=== PATIENT | male | born 1955 | race Caucasian/White ===

== ENCOUNTER 2018-03-05 19:50 | Emergency (ER) | payer MEDICARE ==
[~2018-03-05] VITALS: Ht 180.3 cm; Wt 79.5 kg
[~2018-03-05 19:50] MED LIST: ASPIRIN 81M81 MG/TA2 PO; ATIVAN 0.50.5 MG/TAB PO; CARDIZEM 30MG T30 MG PO; CARDIZEM CD 18180 MG PO; CEPHALEXIN500 M1 PO; CHANTIX 1MG1 MG PO; CIPRO 500MG TA500 MG PO; COUMADIN 1010 MG/TAB PO; COUMADIN 5MG5 MG/TAB PO; COUMADIN 77.5 MG/TAB PO; COUMADIN5 MG PO; DIGITEK0.25 MG PO; FLAGYL500 MG PO; HYDROXYZINE HCL25 MG PO; JANTOVEN7.5 MG PO; JOINT SUPPLEMENT; LANOXIN 0.25M0.25 MG PO; LASIX40 MG PO; LEVAQUIN 5500 MG/TAB PO; LOPRESSOR 225 MG/TAB PO; LOVENOX 8080 MG/0.8 SQ; NO HOME MEDICATIONS; NORCO 325 MG-7.1 TAB PO; OMEGA 31000 MG PO; OMEGA-31000 MG PO; PERCOCET 325 MG1 TA2 PO; POTASSIUM CH2 MEQ/ML PO; PREDNISONE20 MG PO; PRINIVIL2.5 MG PO; PROBIOTIC FORMU1 CAP PO; ST. JOSEPH81 M2 PO; VALIUM 5MG T5 MG/TAB PO; VITAMIN D31000 IU PO; ZESTRIL 5MG5 MG PO; [UNRECOGNIZED DRUG - OTHER] PO; [UNRECOGNIZED DRUG - REMARK]
[2018-03-05 19:51] VITALS: BP 138/65; TEMP 98.6
[2018-03-05] MEDS ORDERED: SURFAK 240240 MG/CAP PO (21:13)
[2018-03-05] MEDS ORDERED: CARDIZEM CD 18180 MG PO (21:14)
[2018-03-05] MEDS ORDERED: COUMADIN 5MG5 MG/TAB PO (21:16)
[2018-03-05] MEDS ORDERED: CLEOCIN HCL300 MG PO (22:31)
[2018-03-05 23:18] VITALS: PULSE 53
== END 2018-03-05 23:18 | disposition home or self-care (01) ==
LOC: COL.ER 19:50
DX: S02.82XA Fracture of other specified skull and facial bones, left side, initial encounter for closed fracture (principal); S01.81XA Laceration without foreign body of other part of head, initial encounter; I10 Essential (primary) hypertension; Z79.01 Long term (current) use of anticoagulants; Z95.2 Presence of prosthetic heart valve; Z79.82 Long term (current) use of aspirin; Y04.0XXA Assault by unarmed brawl or fight, initial encounter

== ENCOUNTER 2018-03-13 10:57 | Emergency (ER) | payer MEDICARE ==
[~2018-03-13 10:57] MED LIST changes: +CLEOCIN HCL300 MG PO; +SURFAK 240240 MG/CAP PO
[2018-03-13 11:03] VITALS: BP 125/89; PULSE 73; TEMP 98.6
== END 2018-03-13 11:09 | disposition home or self-care (01) ==
LOC: COL.ER 10:57
DX: S01.412D Laceration without foreign body of left cheek and temporomandibular area, subsequent encounter (principal); X58.XXXD Exposure to other specified factors, subsequent encounter; Z79.82 Long term (current) use of aspirin; Z79.01 Long term (current) use of anticoagulants

== ENCOUNTER 2019-04-27 08:34 | Outpatient (CLI) | payer MEDICARE ==
[~2019-04-27] VITALS: Ht 180.3 cm; Wt 74.6 kg
[2019-04-27] MEDS ORDERED: CARDIZEM CD 12120 MG PO (09:17)
[2019-04-27] MEDS ORDERED: COUMADIN 1MG1 MG/TAB PO (09:20)
[2019-04-27 09:24] LABS: HEMATOCRIT 44.9 % (42.0-52.0); HEMOGLOBIN 15.1 g/dl (13.5-18.0); INR 2.9 (0.8-3.0); MEAN CELL VOLUME 92 fl (80.0-100.0); MEAN CORPUSCULAR HEMOGLOBIN 31 pg (27.0-31.0); MEAN CORPUSCULAR HGB CONC 34 g/dl (33.0-37.0); MEAN PLATELET VOLUME 8.7 fl (7.4-10.4); PLATELET COUNT 178 K/mm3 (130-400); PROTHROMBIN TIME 34.9 SECONDS (9.7-12.8); RED BLOOD COUNT 4.88 M/mm3 (4.20-5.60); REDCELL DISTRIBUTION WIDTH-CV 13.4 % (11.5-14.5)
[2019-04-27 09:28] LABS: CALCIUM 8.9 mg/dL (8.4-10.2); CREATININE, serum 1.18 (0.66-1.25); POTASSIUM 4.6 mmol/L (3.4-5.0)
[2019-04-27 09:42] VITALS: BP 142/87; PULSE 63; TEMP 98.1
[2019-04-27 10:45] VITALS: BP 130/82; PULSE 58
--- NOTE | 2019-04-27 10:45 | NUR ---
DELISA complete and report from Ronnie Pinon RN. Pt resting well in bed. Mother at bedside.
[2019-04-27 11:00] VITALS: BP 139/83; PULSE 88
[2019-04-27 11:15] VITALS: BP 145/90; PULSE 71; TEMP 97.7
[2019-04-27 11:30] VITALS: BP 139/64; PULSE 57
--- NOTE | 2019-04-27 11:30 | NUR ---
Pt has ambulated, voided and jing PO intake s n/v. PIV removed with catheter intact.
--- NOTE | 2019-04-27 11:40 | NUR ---
Pt discharged per w/c by nurse with mother.
== END 2019-04-27 13:27 | disposition home or self-care (01) ==
LOC: COL.RAD 08:34
PROVIDERS: Internal Medicine Cardiovascular Disease
DX: T82.03XA Leakage of heart valve prosthesis, initial encounter (principal); I08.3 Combined rheumatic disorders of mitral, aortic and tricuspid valves; I70.0 Atherosclerosis of aorta; I48.0 Paroxysmal atrial fibrillation; E78.2 Mixed hyperlipidemia; Z95.4 Presence of other heart-valve replacement; Z87.891 Personal history of nicotine dependence; Z79.899 Other long term (current) drug therapy
CPT/HCPCS: J2704; J7030

== ENCOUNTER → 2019-08-28 | Outpatient (CLI) | payer MEDICARE ==
[~2019-08-28] MED LIST changes: +CARDIZEM CD 12120 MG PO; +COUMADIN 1MG1 MG/TAB PO
== END ==
LOC: COL.PUL 08:00
DX: R06.02 Shortness of breath (principal); F17.210 Nicotine dependence, cigarettes, uncomplicated

== ENCOUNTER 2019-11-03 11:06 | Day surgery (SDC) | payer MEDICARE ==
[~2019-11-03] VITALS: Ht 177.8 cm; Wt 75.0 kg
[2019-11-03] VITALS (10 sets, daily range): BP systolic 127–153; BP diastolic 83–106; PULSE 62–81; TEMP 96.7
[2019-11-03 11:40] LABS: BASO % 0.5 % (0.0-2.0); EOS # 0.1 (0.0-0.7); GRAN # 4.5 (1.4-6.5); GRAN % 74.2 % (42.2-75.2); HEMATOCRIT 45.3 % (42.0-52.0); LYMPH % 15.8 % (20.0-51.0); MEAN CELL VOLUME 93 fl (80.0-100.0); MEAN CORPUSCULAR HEMOGLOBIN 31 pg (27.0-31.0); MEAN CORPUSCULAR HGB CONC 33 g/dl (33.0-37.0); MEAN PLATELET VOLUME 9.1 fl (7.4-10.4); MONO # 0.4 (0.1-0.6); MONO % 7.3 % (1.7-9.3); PLATELET COUNT 220 K/mm3 (130-400); RED BLOOD COUNT 4.89 M/mm3 (4.20-5.60); REDCELL DISTRIBUTION WIDTH-CV 13.2 % (11.5-14.5)
[2019-11-03 11:51] LABS: ALANINE AMINOTRANSFERASE 30 U/L (21-72); ALBUMIN 4.5 gm/dL (3.5-5.0); ALKALINE PHOSPHATASE 105 U/L (50-136); ANION GAP 7 mmol/L (7-16); AST,SGOT 42 U/L (15-37); BILIRUBIN,TOTAL 0.9 mg/dL (0.0-1.0); BLOOD UREA NITROGEN 17 mg/dL (9-20); CALCIUM 9.1 mg/dL (8.4-10.2); CARBON DIOXIDE 27 mmol/L (22-30); CHLORIDE 105 mmol/L (98-107); CREATININE, serum 1.17 (0.66-1.25); GLUCOSE 95 mg/dL (74-106); POTASSIUM 4.3 mmol/L (3.4-5.0); SODIUM 140 mmol/L (137-145); TOTAL PROTEIN 7.4 gm/dL (6.4-8.2)
[2019-11-03 11:56] LABS: INR 3.1 (0.8-3.0); PROTHROMBIN TIME 38.1 SECONDS (9.7-12.8)
[2019-11-03 11:58] LABS: PARTIAL THROMBOPLASTIN TIME 59.4 SECONDS (26.0-37.0)
[2019-11-03 12:02] LABS: TROPONIN-I < 0.012 ng/mL (0.000-0.035)
--- NOTE | 2019-11-03 13:42 | NUR ---
SEE MERGE DOCUMENTATION FOR MEDICATION ADMINISTRATION TIMES AND INTRA/POST PROCEDURE SEDATION ASSESSMENTS. POSITIAGUILAR DAVID, PLAN FOR RIGHT RADIAL ACCESS.
--- NOTE | 2019-11-03 14:40 | NUR ---
Pt arrived to room 12 from flower shop laborer/designer,report from KADE Llanos.
--- NOTE | 2019-11-03 18:26 | NUR ---
Discharge instructions given to pt.Pt verbalizes understanding.Pt instructed to call Dr Corbett office Wednesday am for 1 week follow up.Pt instructed to call Dr Jennings office for follow up.INT removed,catheter tip intact.Pt escorted out via wheelchair by this nurse.
== END 2019-11-03 18:31 | disposition home or self-care (01) ==
LOC: COL.ER 11:06 → EUO 14:27
PROVIDERS: Family Medicine
DX: I77.810 Thoracic aortic ectasia (principal); I08.3 Combined rheumatic disorders of mitral, aortic and tricuspid valves; I25.10 Atherosclerotic heart disease of native coronary artery without angina pectoris; I48.0 Paroxysmal atrial fibrillation; Z79.01 Long term (current) use of anticoagulants; Z95.2 Presence of prosthetic heart valve; I10 Essential (primary) hypertension; Z79.899 Other long term (current) drug therapy; Z79.82 Long term (current) use of aspirin; R01.1 Cardiac murmur, unspecified; Z88.1 Allergy status to other antibiotic agents; Z88.0 Allergy status to penicillin; Z88.7 Allergy status to serum and vaccine
CPT/HCPCS: C1769; J1644; J2250; J3010; Q9967

== ENCOUNTER 2020-07-16 13:59 | Inpatient (IN) | payer MEDICARE ==
[2020-07-16] VITALS (112 sets, daily range): BP systolic 100–107; BP diastolic 70–93; PULSE 65–156; TEMP 98.2; O2SAT 64–100
[~2020-07-16] VITALS: Ht 177.8 cm; Wt 73.5 kg
[2020-07-16 14:35] LABS: BASO % 0.3 % (0.0-2.0); EOS % 0.2 % (0-4.0); GRAN # 7.7 (1.4-6.5); GRAN % 80.9 % (42.2-75.2); HEMOGLOBIN 15.6 g/dl (13.5-18.0); LYMPH # 1.3 (1.2-3.4); LYMPH % 13.5 % (20.0-51.0); MEAN CELL VOLUME 93 fl (80.0-100.0); MEAN CORPUSCULAR HEMOGLOBIN 31 pg (27.0-31.0); MEAN CORPUSCULAR HGB CONC 33 g/dl (33.0-37.0); MEAN PLATELET VOLUME 8.7 fl (7.4-10.4); MONO # 0.5 (0.1-0.6); MONO % 4.8 % (1.7-9.3); PLATELET COUNT 278 K/mm3 (130-400); RED BLOOD COUNT 5.04 M/mm3 (4.20-5.60); REDCELL DISTRIBUTION WIDTH-CV 13.4 % (11.5-14.5)
[2020-07-16 14:40] LABS: INR 3.1 (0.8-3.0); PROTHROMBIN TIME 35.3 SECONDS (9.7-12.8)
[2020-07-16 14:43] LABS: PARTIAL THROMBOPLASTIN TIME 47.5 SECONDS (26.0-37.0)
[2020-07-16 14:46] LABS: ALBUMIN 4.8 gm/dL (3.5-5.0); CALCIUM 9.9 mg/dL (8.4-10.2); CREATININE, serum 2.04 (0.66-1.25); MAGNESIUM 2.2 mg/dL (1.6-2.3); POTASSIUM 4.3 mmol/L (3.4-5.0); TOTAL PROTEIN 7.9 gm/dL (6.4-8.2)
[2020-07-16 14:57] LABS: TROPONIN-I 0.012 ng/mL (0.000-0.035)
[2020-07-16] MEDS ORDERED: COUMADIN 77.5 MG/TAB PO ×2 (17:05→17:50)
[2020-07-17] VITALS (545 sets, daily range): BP systolic 116–140; BP diastolic 68–96; PULSE 56–65; TEMP 97.9–98.4; O2SAT 86–100
[2020-07-17 05:23] LABS: BASO % 0.7 % (0.0-2.0); EOS # 0.1 (0.0-0.7); EOS % 2.2 % (0-4.0); GRAN # 3.8 (1.4-6.5); GRAN % 65.4 % (42.2-75.2); HEMOGLOBIN 13.1 g/dl (13.5-18.0); LYMPH # 1.4 (1.2-3.4); LYMPH % 23.8 % (20.0-51.0); MEAN CELL VOLUME 94 fl (80.0-100.0); MEAN CORPUSCULAR HEMOGLOBIN 31 pg (27.0-31.0); MEAN CORPUSCULAR HGB CONC 33 g/dl (33.0-37.0); MEAN PLATELET VOLUME 8.8 fl (7.4-10.4); MONO # 0.4 (0.1-0.6); MONO % 7.4 % (1.7-9.3); PLATELET COUNT 190 K/mm3 (130-400); RED BLOOD COUNT 4.24 M/mm3 (4.20-5.60); REDCELL DISTRIBUTION WIDTH-CV 13.7 % (11.5-14.5)
[2020-07-17 05:28] LABS: INR 3.2 (0.8-3.0); PROTHROMBIN TIME 35.9 SECONDS (9.7-12.8)
[2020-07-17 05:38] LABS: ALBUMIN 3.3 gm/dL (3.5-5.0); BILIRUBIN,TOTAL 0.8 mg/dL (0.0-1.0); CALCIUM 8.3 mg/dL (8.4-10.2); CREATININE, serum 1.24 (0.66-1.25); POTASSIUM 3.9 mmol/L (3.4-5.0); TOTAL PROTEIN 5.6 gm/dL (6.4-8.2)
[2020-07-17 05:49] LABS: TROPONIN-I 0.022 ng/mL (0.000-0.035)
--- NOTE | 2020-07-17 10:28 | NUR ---
Database Administration Manager met with the patient to complete initial intake. The patient lives independently and alone (with his cat Spochristopher) in [place]. The patient is being taken care of by his father's friend. The patient has a CPAP but has not used it in over a year. He receives supplies from [facility]. The patient's PCP is Dr. Gail Corbett. The patient's yarn washer is Dr. Jennings and Fahad Watts APRN. The patient receives medications from [facility] with no difficulties. The patient does not have advanced directives. The patient is not but has two children, Zev # and Rebekah # . They live in [place], [place] and [place], [place], respectively. The patient plans to return home at discharge and has no anticipated needs.
--- NOTE | 2020-07-17 10:42 | NUR ---
Supervisor Of Officials attended clinical rounds with the team. The patient is to be transferred to the floor.
--- NOTE | 2020-07-17 11:30 | NUR ---
Patient has been doing well this morning. Denies chest pain and nausea. He will be going to med/surg floor when there is a bed available. Sotalol started as ordered by Dr Jennings. Patient is aware he will be staying in the hospital for a few days for observation. Cardizem drip has been discontinued. No other changes at this time. Call light within reach.
--- NOTE | 2020-07-17 14:14 | NUR ---
Warfarin Initial Dosing Pharmacy Note Ordering Provider: Ayaz Saini MD Indication: Mechanical Valve LABS: INR 3.2 (Goal 2.5-3.5) Recommendation: Continue Warfarin 7.5 mg po qHS. Pharmacy will continue to closely montior daily INR levels. Home Regimen: Warfarin 10 mg po SuTuTh and Warfarin 7.5 mg po [id number]
[2020-07-18] VITALS (240 sets, daily range): BP systolic 108–133; BP diastolic 67–87; PULSE 52–68; TEMP 97.5–98.6; O2SAT 81–100
[2020-07-18 06:06] LABS: BASO % 0.8 % (0.0-2.0); EOS # 0.2 (0.0-0.7); EOS % 3.1 % (0-4.0); GRAN # 3.2 (1.4-6.5); HEMATOCRIT 41.4 % (42.0-52.0); HEMOGLOBIN 13.8 g/dl (13.5-18.0); LYMPH # 1.1 (1.2-3.4); LYMPH % 22.5 % (20.0-51.0); MEAN CELL VOLUME 93 fl (80.0-100.0); MEAN CORPUSCULAR HEMOGLOBIN 31 pg (27.0-31.0); MEAN CORPUSCULAR HGB CONC 33 g/dl (33.0-37.0); MEAN PLATELET VOLUME 8.7 fl (7.4-10.4); MONO # 0.4 (0.1-0.6); MONO % 7.2 % (1.7-9.3); PLATELET COUNT 196 K/mm3 (130-400); RED BLOOD COUNT 4.47 M/mm3 (4.20-5.60); REDCELL DISTRIBUTION WIDTH-CV 13.1 % (11.5-14.5)
[2020-07-18 06:19] LABS: CALCIUM 8.7 mg/dL (8.4-10.2); CREATININE, serum 1.19 (0.66-1.25); POTASSIUM 4.2 mmol/L (3.4-5.0)
[2020-07-18 06:28] LABS: INR 2.7 (0.8-3.0); PROTHROMBIN TIME 30.7 SECONDS (9.7-12.8)
--- NOTE | 2020-07-18 07:20 | NUR ---
RECEIVED REPORT FROM KADE MOJICA. PT SLEEPING BUT AROUSES EASILY. CALL LIGHT WITHIN REACH. VSS. URINAL EMPTIED AND PLACED BACK WITHIN REACH.
--- NOTE | 2020-07-18 10:55 | NUR ---
First visit from the blocker and polisher. No needs right now.
--- NOTE | 2020-07-18 11:14 | NUR ---
REPORT GIVEN TO KADE FLORES ON MEDICAL. PT AWARE TO BE TRANSFERRED TO [facility]. ALL PERSONAL BELONGINGS SENT WITH PT.
--- NOTE | 2020-07-18 19:34 | NUR ---
SHIFT REPORT GIVEN TO NIGHT NURSE. SEE SHIFT ASSESSMENT. PATIENTS DAY UNEVENTFUL SINCE BEING TRANSFERRED TO THE FLOOR.
--- NOTE | 2020-07-18 21:30 | NUR ---
Pt assessment completed and documented. Pt resting in bed at this time. Pt alert and oriented x4. Denies pain. Reports that his nose is dry. TERENCE Lewis contacted with orders to give ocean nasal spray PRN and to leave at pts bedside. INT to left AC patent with good blood return. Old drainage noted around IV site. Pt denies any other needs/concerns. Call light within reach. Will continue to monitor
[2020-07-19 04:23] VITALS: BP 131/77; PULSE 51; TEMP 97.7
--- NOTE | 2020-07-19 06:08 | NUR ---
Pt had uneventful night. No reports of pain overnight. Currently resting in bed. Call light within reach
[2020-07-19 07:00] LABS: BASO % 0.7 % (0.0-2.0); EOS # 0.2 (0.0-0.7); EOS % 2.6 % (0-4.0); GRAN # 4.3 (1.4-6.5); GRAN % 70.4 % (42.2-75.2); HEMATOCRIT 43.7 % (42.0-52.0); HEMOGLOBIN 15.1 g/dl (13.5-18.0); LYMPH # 1.1 (1.2-3.4); LYMPH % 18.2 % (20.0-51.0); MEAN CELL VOLUME 93 fl (80.0-100.0); MEAN CORPUSCULAR HEMOGLOBIN 32 pg (27.0-31.0); MEAN CORPUSCULAR HGB CONC 35 g/dl (33.0-37.0); MEAN PLATELET VOLUME 8.8 fl (7.4-10.4); MONO # 0.5 (0.1-0.6); MONO % 7.9 % (1.7-9.3); PLATELET COUNT 216 K/mm3 (130-400); RED BLOOD COUNT 4.71 M/mm3 (4.20-5.60); REDCELL DISTRIBUTION WIDTH-CV 13.1 % (11.5-14.5)
[2020-07-19 07:10] LABS: INR 2.3 (0.8-3.0); PROTHROMBIN TIME 25.9 SECONDS (9.7-12.8)
[2020-07-19 07:17] LABS: CALCIUM 8.8 mg/dL (8.4-10.2); CREATININE, serum 1.17 (0.66-1.25); MAGNESIUM 2.1 mg/dL (1.6-2.3); POTASSIUM 4.2 mmol/L (3.4-5.0)
--- NOTE | 2020-07-19 08:01 | NUR ---
Report given to KADE Prieto
[2020-07-19 08:19] VITALS: BP 98/74; PULSE 61; TEMP 98.3
--- NOTE | 2020-07-19 10:26 | NUR ---
SW attended clinical rounds. The patient may be able to d/c later today after his loop recorder is placed. SW followed up with the patient and presented and read the IM form outloud to the patient. The patient verbalized understanding and gave SW approval to sign the form on his behalf. SW provided him with a copy. No additional needs at this time.
[2020-07-19 11:53] VITALS: BP 103/71; PULSE 50; TEMP 98.4
[2020-07-19] MEDS ORDERED: BETAPACE 80MG80 MG PO (14:13)
== END 2020-07-19 15:33 | disposition home or self-care (01) | DRG 261 ==
LOC: COL.ER 13:59 → MEDICAL 16:26 → ICU 16:26 → MEDICAL 07-18 12:15
PROVIDERS: Emergency Medicine; Physician Assistant; ADMIT Internal Medicine
PROC: 0JH632Z Insertion of Monitoring Device into Chest Subcutaneous Tissue and Fascia, Percutaneous Approach (ICD-10-PCS; principal; 2020-07-19)
DX: I48.0 Paroxysmal atrial fibrillation (principal); N17.9 Acute kidney failure, unspecified; I10 Essential (primary) hypertension; F17.210 Nicotine dependence, cigarettes, uncomplicated; I95.9 Hypotension, unspecified; R00.1 Bradycardia, unspecified; Z79.01 Long term (current) use of anticoagulants; Z88.0 Allergy status to penicillin; Z95.4 Presence of other heart-valve replacement; Z88.1 Allergy status to other antibiotic agents
CPT/HCPCS: 99223-AI; 99232-AI; J7030

== ENCOUNTER → 2020-09-11 | Outpatient (CLI) | payer MEDICARE ==
[~2020-09-11] MED LIST changes: +BETAPACE 80MG80 MG PO
== END ==
LOC: COL.RAD 10:10
DX: I71.2 Thoracic aortic aneurysm, without rupture (principal); R91.8 Other nonspecific abnormal finding of lung field
CPT/HCPCS: Q9967

== ENCOUNTER 2020-11-08 15:59 | Emergency (ER) | payer MEDICARE ==
[~2020-11-08] VITALS: Ht 180.3 cm; Wt 78.2 kg
[2020-11-08 15:59] VITALS: TEMP 97.5
[2020-11-08 16:25] LABS: BASO % 0.5 % (0.0-2.0); EOS # 0.1 (0.0-0.7); EOS % 2.7 % (0-4.0); GRAN # 2.1 (1.4-6.5); HEMATOCRIT 49.4 % (42.0-52.0); HEMOGLOBIN 16.6 g/dl (13.5-18.0); LYMPH % 26.4 % (20.0-51.0); MEAN CELL VOLUME 89 fl (80.0-100.0); MEAN CORPUSCULAR HEMOGLOBIN 30 pg (27.0-31.0); MEAN CORPUSCULAR HGB CONC 34 g/dl (33.0-37.0); MEAN PLATELET VOLUME 9.4 fl (7.4-10.4); MONO # 0.5 (0.1-0.6); MONO % 12.4 % (1.7-9.3); PLATELET COUNT 171 K/mm3 (130-400); RED BLOOD COUNT 5.55 M/mm3 (4.20-5.60); REDCELL DISTRIBUTION WIDTH-CV 13.5 % (11.5-14.5)
[2020-11-08 16:31] LABS: INR 2.3 (0.8-3.0); PROTHROMBIN TIME 25.8 SECONDS (9.7-12.8)
[2020-11-08 16:43] LABS: ALANINE AMINOTRANSFERASE 21 U/L (4-49); ALBUMIN 4.4 gm/dL (3.5-5.0); ALKALINE PHOSPHATASE 109 U/L (50-136); ANION GAP 5 mmol/L (7-16); AST,SGOT 40 U/L (15-37); BILIRUBIN,TOTAL 0.9 mg/dL (0.0-1.0); BLOOD UREA NITROGEN 22 mg/dL (9-20); CALCIUM 9.4 mg/dL (8.4-10.2); CARBON DIOXIDE 30 mmol/L (22-30); CHLORIDE 102 mmol/L (98-107); CREATININE, serum 1.25 (0.66-1.25); GLUCOSE 97 mg/dL (74-106); POTASSIUM 4.1 mmol/L (3.4-5.0); SODIUM 137 mmol/L (137-145); TOTAL PROTEIN 7.3 gm/dL (6.4-8.2)
[2020-11-08 16:54] LABS: TROPONIN-I < 0.012 ng/mL (0.000-0.035)
[2020-11-08 19:15] VITALS: BP 143/105; PULSE 95
== END 2020-11-08 19:15 | disposition home or self-care (01) ==
LOC: COL.ER 15:59
PROVIDERS: Physician Assistant
DX: R42 Dizziness and giddiness (principal); H53.9 Unspecified visual disturbance; L97.529 Non-pressure chronic ulcer of other part of left foot with unspecified severity; L97.519 Non-pressure chronic ulcer of other part of right foot with unspecified severity; I48.91 Unspecified atrial fibrillation; F17.200 Nicotine dependence, unspecified, uncomplicated; Z95.2 Presence of prosthetic heart valve; Z88.1 Allergy status to other antibiotic agents; Z88.7 Allergy status to serum and vaccine; Z95.4 Presence of other heart-valve replacement; Z79.82 Long term (current) use of aspirin; Z79.01 Long term (current) use of anticoagulants
CPT/HCPCS: Q9967

== ENCOUNTER → 2021-11-03 | Outpatient (CLI) | payer MEDICARE ==
[2021-11-03 10:16] LABS: CALCIUM 9.2 mg/dL (8.4-10.2); CREATININE, serum 1.19 mg/dL (0.72-1.25); POTASSIUM 4.2 mmol/L (3.5-4.5)
== END ==
LOC: COL.LAB 09:32 → COL.RAD 11:30 → COL.LAB 11:30
PROVIDERS: Nurse Practitioner
DX: I77.810 Thoracic aortic ectasia (principal); R91.1 Solitary pulmonary nodule; Z95.4 Presence of other heart-valve replacement
CPT/HCPCS: Q9967

== ENCOUNTER 2022-05-08 10:57 | Day surgery (SDC) | payer MEDICARE ==
[~2022-05-08] VITALS: Ht 177.8 cm; Wt 72.9 kg
[~2022-05-08 10:57] MED LIST changes: +ASPIRIN E.C. 8181 MG PO
[2022-05-08] MEDS ORDERED: CALCIUM 600MG+D1 TAB PO (11:24)
[2022-05-08] MEDS ORDERED: PLENDIL 2.5MG2.5 MG PO (11:25)
[2022-05-08] MEDS ORDERED: BETAPACE 120MG120 MG PO (11:26)
[2022-05-08] MEDS ORDERED: LIPITOR 40MG TA40 MG PO (11:28)
[2022-05-08 11:55] VITALS: BP 105/75; PULSE 58; TEMP 97.6
[2022-05-08 12:30] VITALS: BP 128/82; PULSE 50
[2022-05-08 12:45] VITALS: BP 119/84; PULSE 55; TEMP 97.2
[2022-05-08 13:00] VITALS: BP 130/84; PULSE 53
--- NOTE | 2022-05-08 13:25 | NUR ---
1230 PT RETURNED TO BAY 4 VIA CART. TRANSFERRED TO CHAIR WITH RN ASSIST. ALERT AND ORIENTED. MONITORS ATTACHED, INTERVALS AND ALARMS SET. VSS. PT DENIES PAIN OR NAUSEA. FOOD AND DRINK PROVIDED. CALL LIGHT IN REACH. 1245 VSS. PT DENIES DISCOMFORT. TOLERATING FOOD AND DRINK WELL. 1300 VSS. PT DENIES DISCOMFORT. REVIEWED DISCHARGE INSTRUCTIONS AND EDUCATION MATERIAL, ANSWERED ALL QUESTIONS. IV REMOVED WITHOUT COMPLICATIONS. PT ALLOWED TO DRESS. 1325 TRANSFERRED PT VIA WHEELCHAIR TO PERSONAL VEHICLE TO BE DRIVEN HOME BY BROTHER.
== END 2022-05-08 13:25 | disposition home or self-care (01) ==
LOC: SDCO 10:57
DX: Z12.11 Encounter for screening for malignant neoplasm of colon (principal); F17.210 Nicotine dependence, cigarettes, uncomplicated; G47.33 Obstructive sleep apnea (adult) (pediatric); Z94.4 Liver transplant status; Z79.01 Long term (current) use of anticoagulants; Z79.82 Long term (current) use of aspirin; Z91.19 Patient's noncompliance with other medical treatment and regimen; Z95.2 Presence of prosthetic heart valve
CPT/HCPCS: J7120

== ENCOUNTER 2023-01-18 16:11 | Emergency (ER) | payer MEDICARE ==
[~2023-01-18] VITALS: Ht 180.3 cm; Wt 78.2 kg
[~2023-01-18 16:11] MED LIST changes: +BETAPACE 120MG120 MG PO; +CALCIUM 600MG+D1 TAB PO; +LIPITOR 40MG TA40 MG PO; +PLENDIL 2.5MG2.5 MG PO
[2023-01-18 16:20] VITALS: TEMP 97.7
[2023-01-18 16:42] LABS: BASO % 0.5 % (0.0-2.0); EOS # 0.2 K/mm3 (0.0-0.7); EOS % 1.9 % (0.0-4.0); GRAN # 6.1 K/mm3 (1.4-6.5); HEMOGLOBIN 12.2 g/dl (13.5-18.0); LYMPH # 1.3 K/mm3 (1.2-3.4); LYMPH % 15.5 % (20.0-51.0); MEAN CELL VOLUME 90 fl (80.0-100.0); MEAN CORPUSCULAR HEMOGLOBIN 30 pg (27-31); MEAN CORPUSCULAR HGB CONC 33 g/dl (33.0-37.0); MEAN PLATELET VOLUME 8.3 fl (7.4-10.4); MONO # 0.7 K/mm3 (0.1-0.6); MONO % 7.9 % (1.7-9.3); PLATELET COUNT 208 K/mm3 (130-400); RED BLOOD COUNT 4.06 M/mm3 (4.20-5.60); REDCELL DISTRIBUTION WIDTH-CV 14.3 % (11.5-14.5)
[2023-01-18 16:44] LABS: HEMATOCRIT 36.5 % (42.0-52.0)
[2023-01-18 17:04] LABS: ALBUMIN 3.6 gm/dL (3.4-4.8); CALCIUM 9.1 mg/dL (8.4-10.2); INR 2.9 (0.8-3.0); POTASSIUM 4.5 mmol/L (3.5-4.5); PROTHROMBIN TIME 33.8 SECONDS (9.7-12.8); TOTAL PROTEIN 6.5 gm/dL (6.2-8.1)
[2023-01-18] MEDS ORDERED: NORCO 325 MG-51 TAB PO (19:20)
[2023-01-18 19:47] VITALS: BP 138/102; PULSE 68
== END 2023-01-18 19:45 | disposition home or self-care (01) ==
LOC: COL.ER 16:11
PROVIDERS: Emergency Medicine
DX: S90.31XA Contusion of right foot, initial encounter (principal); R22.41 Localized swelling, mass and lump, right lower limb; I48.91 Unspecified atrial fibrillation; Z79.01 Long term (current) use of anticoagulants; Z28.311 Partially vaccinated for COVID-19; V89.2XXA Person injured in unspecified motor-vehicle accident, traffic, initial encounter; Y92.410 Unspecified street and highway as the place of occurrence of the external cause
CPT/HCPCS: Q9967

== ENCOUNTER 2024-05-25 11:01 | Day surgery (SDC) | payer MEDICARE ==
[~2024-05-25] VITALS: Ht 180.3 cm; Wt 75.8 kg
[~2024-05-25 11:01] MED LIST changes: +NORCO 325 MG-51 TAB PO
[2024-05-25] MEDS ORDERED: AMOXICILLIN 50500 MG PO (12:11)
[2024-05-25] MEDS ORDERED: CHROMIUM PO (12:13)
[2024-05-25] MEDS ORDERED: THE MEDICINE S200 M2 PO (12:13)
[2024-05-25] MEDS ORDERED: NATURE'S BLEND500 M1 PO (12:13)
[2024-05-25] MEDS ORDERED: FLONASEALLERGY NS (12:14)
[2024-05-25] MEDS ORDERED: MOBIC15 MG PO (12:15)
[2024-05-25] MEDS ORDERED: PROBIOTIC-MAJOR PO (12:15)
[2024-05-25] MEDS ORDERED: COUMADIN 5MG5 MG/TAB PO (12:16)
[2024-05-25] MEDS ORDERED: NS 1,000 ML IV.SOLN. IR SCH (13:44)
[2024-05-25] MEDS ORDERED: Vancomycin 1 GM VIAL IR SCH (13:45)
[2024-05-25] MEDS ORDERED: Water For Inj, Sterile 10 ML VIAL IJ SCH (13:45)
[2024-05-25] MEDS ORDERED: CLEOCIN HCL300 MG PO (13:50)
[2024-05-25 13:51] VITALS: BP 132/90; PULSE 60
[2024-05-25 14:00] VITALS: BP 149/90; PULSE 68
--- NOTE | 2024-05-25 14:28 | NUR ---
DC instructions reviewed with pt. He expresses understanding. Pt is steady on feet to restroom. IV DC'd, site wrapped with coban. He is escorted out to entrance. Gait steady, he is free of complaints. Belongings sent with pt. Dressing remains clean, dry and intact at discharge. IV was DC's and site wrapped with coban.
== END 2024-05-25 14:28 | disposition home or self-care (01) ==
LOC: COL.CAR 11:01
DX: Z45.09 Encounter for adjustment and management of other cardiac device (principal)
CPT/HCPCS: J0665-JZ; J3370; J7030

== ENCOUNTER 2024-05-26 13:16 | Emergency (ER) | payer MEDICARE ==
[~2024-05-26] VITALS: Ht 177.8 cm; Wt 76.4 kg
[~2024-05-26 13:16] MED LIST changes: +AMOXICILLIN 50500 MG PO; +CHROMIUM PO; +FLONASEALLERGY NS; +MOBIC15 MG PO; +NATURE'S BLEND500 M1 PO; +PROBIOTIC-MAJOR PO; +THE MEDICINE S200 M2 PO
[2024-05-26 13:21] VITALS: TEMP 98.1
[2024-05-26 14:10] LABS: BASO % 0.7 % (0.0-2.0); EOS # 0.1 K/mm3 (0.0-0.7); EOS % 1.6 % (0.0-4.0); GRAN % 69.6 % (42.2-75.2); HEMATOCRIT 44.4 % (42.0-52.0); HEMOGLOBIN 15.1 g/dl (13.5-18.0); LYMPH # 1.2 K/mm3 (1.2-3.4); LYMPH % 20.7 % (20.0-51.0); MEAN CELL VOLUME 91 fl (80.0-100.0); MEAN CORPUSCULAR HEMOGLOBIN 31 pg (27-31); MEAN CORPUSCULAR HGB CONC 34 g/dl (33.0-37.0); MEAN PLATELET VOLUME 8.5 fl (7.4-10.4); MONO # 0.4 K/mm3 (0.1-0.6); MONO % 7.2 % (1.7-9.3); PLATELET COUNT 159 K/mm3 (130-400); RED BLOOD COUNT 4.89 M/mm3 (4.20-5.60); REDCELL DISTRIBUTION WIDTH-CV 13.6 % (11.5-14.5)
[2024-05-26 14:16] LABS: INR 4.8 (0.8-3.0)
[2024-05-26 14:24] LABS: PROTHROMBIN TIME 50.3 SECONDS (9.7-12.8)
[2024-05-26 15:40] VITALS: BP 130/93; PULSE 60
== END 2024-05-26 15:40 | disposition home or self-care (01) ==
LOC: COL.ER 13:16
PROVIDERS: Physician Assistant
DX: I97.190 Other postprocedural cardiac functional disturbances following cardiac surgery (principal); I48.91 Unspecified atrial fibrillation; F17.210 Nicotine dependence, cigarettes, uncomplicated; Z79.01 Long term (current) use of anticoagulants